=== PATIENT | male | born 2000 | race Two or more races ===

== ENCOUNTER 2021-09-05 14:36 | Emergency (ER) | payer OTHER ==
[2021-09-05] MEDS ORDERED: Lidocaine 1% 5 ML VIAL INJECT ONE (14:39)
[2021-09-05] MEDS ORDERED: Diphtheria,Pertussis(Acell),Tetanus Vaccine 0.5 ML Syringe IM ONE (15:06)
[2021-09-05] MEDS ORDERED: Bacitracin Oint 1 GM U/D Packet TOP ONE (15:07)
== END 2021-09-05 15:25 | disposition home or self-care (01) ==
LOC: JP.ED 14:36
DX: S60.455A Superficial foreign body of left ring finger, initial encounter (principal); Z23 Encounter for immunization; W45.8XXA Other foreign body or object entering through skin, initial encounter
CPT/HCPCS: 90471; 90715; 99283-25